=== PATIENT | female | born 1985 | race Caucasian/White ===

== ENCOUNTER 2019-04-01 14:39 | Emergency (ER) | payer OTHER ==
[~2019-04-01] VITALS: Ht 157.5 cm; Wt 53.5 kg
--- NOTE | 2019-04-01 14:48 | NUR ---
PT BIBRA 89 C/O TAILBONE PAIN S/P GLF, PT IS AAOX4, NOT IN RESPIRATORY DISTRESS, HOOKED TO MONITOR, KEPT RESTED AND COMFORTABLE, WILL CONTINUE TO MONITOR.
--- NOTE | 2019-04-01 15:06 | NUR ---
SEEN AND EXAMINED BY STEFFEN CARLSON
[2019-04-01] MEDS ORDERED: ACETAMINOPHEN 325 MG TABLET ONE (15:20)
[2019-04-01] MEDS ORDERED: LORAZEPAM 1 MG TABLET ONE (15:20)
[2019-04-01] MEDS ORDERED: LORAZEPAM 1 MG TABLET PO ONE (15:30)
[2019-04-01] MEDS ORDERED: ACETAMINOPHEN 325 MG TABLET PO ONE (15:30)
--- NOTE | 2019-04-01 15:51 | NUR ---
LAY OUT FORMER AT BEDSIDE FOR XRAY.
[2019-04-01] MEDS ORDERED: TRAMADOL HCL 50 MG TABLET ONE (17:44)
[2019-04-01] MEDS ORDERED: TRAMADOL HCL 50 MG TABLET PO ONE (18:00)
[2019-04-01 18:41] VITALS: BP 108/71
--- NOTE | 2019-04-01 18:41 | NUR ---
Patient discharged to home in stable condition. Written and verbal after care instructions given. Patient verbalizes understanding of instruction.
== END 2019-04-01 18:57 | disposition home or self-care (01) ==
LOC: ER 15:05
DX: S30.0XXA Contusion of lower back and pelvis, initial encounter (principal); I10 Essential (primary) hypertension; M19.90 Unspecified osteoarthritis, unspecified site; Z88.1 Allergy status to other antibiotic agents; W18.39XA Other fall on same level, initial encounter; Y93.01 Activity, walking, marching and hiking; Y92.89 Other specified places as the place of occurrence of the external cause; Y99.8 Other external cause status
CPT/HCPCS: 72100-TC; 72220-TC; 73020